=== PATIENT | male | born 1995 | race Caucasian/White ===

== ENCOUNTER 2018-06-16 05:25 | Observation (INO) | payer BC ==
[2018-06-16 13:15] VITALS: BP 123/58; PULSE 58; TEMP 98.1
--- NOTE | 2018-06-16 13:20 | NUR ---
arrived on unit per cart from PACU, awake and alert, Iv infusing per dial-a-flow and placed at 100ml/hr, 3 lap sites CD&I with moss set, denies needs at this time
[2018-06-16 13:30] VITALS: BP 118/58; PULSE 51
[2018-06-16 13:45] VITALS: BP 108/49; PULSE 52
--- NOTE | 2018-06-16 13:45 | NUR ---
given water and tolerates well, asking about something to eat, provided applesauce and if tolerates without nausea will instruct on ordering regular food
[2018-06-16 14:00] VITALS: BP 110/52; PULSE 55
--- NOTE | 2018-06-16 14:00 | NUR ---
instructed on ordering regular food, verbalizes understanding
[2018-06-16 14:30] VITALS: BP 130/67; PULSE 61
--- NOTE | 2018-06-16 14:30 | NUR ---
resting in bed, has ordered something to eat, informed of the need to eat drink and empty his bladder before he can be discharged, verbalizes understanding
[2018-06-16 14:55] LABS: COLLECTION METHOD CLEAN CATCH
[2018-06-16 14:57] LABS: MUCOUS Present /lpf; PH 5 (5-8); SQUAMOUS EPITHELIAL 0-2 /hpf; URINE APPEARANCE Clear; URINE BACTERIA None Seen /hpf; URINE BILIRUBIN Negative (NEGATIVE); URINE BLOOD Negative (NEGATIVE); URINE COLOR Yellow; URINE GLUCOSE Negative (NEGATIVE); URINE KETONE Negative (NEGATIVE); URINE LEUKOCYTE ESTERASE Negative (NEGATIVE); URINE NITRATE Negative (NEGATIVE); URINE PROTEIN(semi-quant) Negative (NEGATIVE); URINE RBC None Seen /hpf; URINE UROBILINOGEN Negative (NEGATIVE)
--- NOTE | 2018-06-16 15:15 | NUR ---
up to bathroom and voided and has eat and is asking if he can go home
--- NOTE | 2018-06-16 15:20 | NUR ---
discharge instructions given to patient and his , verbalizes understanding,
[2018-06-16 15:26] LABS: BASO % 0.3 % (0.0-2.0); EOS # 0.1 (0.0-0.7); EOS % 1.5 % (0-4.0); GRAN # 7.2 (1.4-6.5); GRAN % 78.9 % (42.2-75.2); HEMATOCRIT 42.9 % (42.0-52.0); HEMOGLOBIN 14.9 g/dl (13.5-18.0); LYMPH # 1.3 (1.2-3.4); LYMPH % 14.1 % (20.0-51.0); MEAN CELL VOLUME 94 fl (80.0-100.0); MEAN CORPUSCULAR HEMOGLOBIN 33 pg (27.0-31.0); MEAN CORPUSCULAR HGB CONC 35 g/dl (33.0-37.0); MEAN PLATELET VOLUME 11.2 fl (7.4-10.4); MONO # 0.4 (0.1-0.6); MONO % 4.8 % (1.7-9.3); PLATELET COUNT 200 K/mm3 (130-400); RED BLOOD COUNT 4.59 M/mm3 (4.20-5.60); REDCELL DISTRIBUTION WIDTH-CV 11.9 % (11.5-14.5)
--- NOTE | 2018-06-16 15:37 | NUR ---
discharged ambulatory
--- NOTE | 2018-06-16 15:37 | NUR ---
SW unable to meet with patient before discharge.
[2018-06-16 15:56] LABS: ALANINE AMINOTRANSFERASE 28 U/L (21-72); ALBUMIN 4.4 gm/dL (3.5-5.0); ALKALINE PHOSPHATASE 54 U/L (50-136); ANION GAP 9 mmol/L (7-16); AST,SGOT 18 U/L (15-37); BILIRUBIN,TOTAL 0.4 mg/dL (0.0-1.0); BLOOD UREA NITROGEN 17 mg/dL (9-20); C-REACTIVE PROTEIN < 0.5 mg/dL (0.0-0.9); CALCIUM 9.1 mg/dL (8.4-10.2); CARBON DIOXIDE 25 mmol/L (22-30); CHLORIDE 106 mmol/L (98-107); CREATININE, serum 1.04 mg/dL (0.66-1.25); GLUCOSE 101 mg/dL (74-106); LIPASE 71 U/L (23-300); SODIUM 140 mmol/L (137-145); TOTAL PROTEIN 7.1 gm/dL (6.4-8.2)
== END 2018-06-16 15:37 | disposition home or self-care (01) ==
LOC: COL.ER 05:25 → SURG 09:50
PROVIDERS: ADMIT Surgery
DX: K35.80 Unspecified acute appendicitis (principal)
CPT/HCPCS: J1100; J1885; J2250; J2405; J2704; J2710; J3010; Q9967